=== PATIENT | female | born 1990 | race Caucasian/White ===

== ENCOUNTER 2019-12-19 16:38 | Emergency (ER) | payer MEDICAID, OTHER ==
[~2019-12-19] VITALS: Ht 157.5 cm; Wt 81.8 kg
[2019-12-19 16:52] VITALS: BP 103/54
[2019-12-19] MEDS ORDERED: IBUP-1984 PO (18:50)
== END 2019-12-19 19:19 | disposition home or self-care (01) ==
LOC: ER 16:38
DX: S83.91XA Sprain of unspecified site of right knee, initial encounter (principal); Z79.899 Other long term (current) drug therapy; W19.XXXA Unspecified fall, initial encounter; Y93.89 Activity, other specified; Y92.89 Other specified places as the place of occurrence of the external cause; Y99.8 Other external cause status
CPT/HCPCS: 29530; 73564; 99284